=== PATIENT | male | born 1980 | race Caucasian/White ===

== ENCOUNTER 2021-08-16 10:11 | Emergency (ER) | payer BC, SELFPAY ==
--- NOTE | 2021-08-16 10:48 | XR_ITS ---
FINAL REPORT CLINICAL HISTORY: PAIN FINDINGS: Two views of the chest were obtained. The heart size and pulmonary vascularity are within normal limits. The mediastinum is normal. There is mild left lung base atelectasis or scarring. There is no pneumothorax. The bony thorax is intact. IMPRESSION: Mild left base atelectasis or scarring. Reviewed, Interpreted and Dictated by Emile Boyer III, MD Transcribed by Tad Fuller Authenticated by Emile Boyer III, MD on 08/16/2021 11:30:54 AM [facility]
[2021-08-16 11:00] VITALS: BP 133/90; PULSE 86; RESP 19; TEMP 36.8; O2SAT 99; BMI 36.1
--- NOTE | 2021-08-16 11:32 | HMH.EDUTC ---
[facility] – [place] Disposition Clinical Impression: Pleurisy Disposition: Home, Self-Care Condition on Discharge: Good Instructions: Pleurisy, DI for Pleurisy Additional Instructions: Drink plenty of fluids. Take ibuprofen for pain or fever. Take the medications as directed. Follow up with your regular doctor and take the chest x-ray report or a disk with the actual x-ray image on it (you can get this from medical records). GO TO THE ER FOR ANY WORSENING SYMPTOMS Don't start the oral steroids until tomorrow, since you had the shot here today. Prescriptions: methylPREDNISolone [Medrol] 4 mg PO DIRECTED 6 Days #21 packet Transmission Status: Received by [id number] Azithromycin [Z-Marcus 250mg Tab*] 250 mg PO UD DOSE PK #6 tab Transmission Status: Received by [id number] Referrals: Provider,Referral, MD [Primary Care Provider] - Time of Disposition: 12:18 Medical Decision Making - Medical Records Medical records reviewed: No: I reviewed the patient's medical records. - Bony Inquiry Pt receiving controlled substance: No Vital Signs: 08/16/21 11:00 08/16/21 12:14 Temperature 98.2 F 98.2 F Temperature Source Oral Pulse Rate 86 Pulse Rate [Right Brachial] 86 Respiratory Rate 19 19 Blood Pressure 133/90 Blood Pressure [Right Arm] 133/90 Blood Pressure Mean [Right Arm] 104 Blood Pressure Source [Right Arm] Automatic Cuff Blood Pressure Position [Right Arm] Sitting 02 Sat by Pulse Oximetry 99 Oxygen Delivery Method Room Air Orders (Tests/Meds): ED MEDICATIONS Discontinued Medications Generic Name Dose Route Start Last Admin Trade Name Meleq PRN Reason Stop Dose Admin Dexamethasone Sodium Phosphate 8 mg 08/16/21 12:05 08/16/21 12:10 Dexamethasone 4mg/Ml 1ml Vial IM 08/16/21 12:06 8 mg ONCE ONE Administration - Radiology Data #1 Image(s): Chest Image Reviewed: Yes I reviewed the patient's radiology image, Yes I have reviewed radiologist's interpretation Preliminary Findings: No Infiltrates Seen FINAL REPORT CLINICAL HISTORY: PAIN FINDINGS: Two views of the chest were obtained. The heart size and pulmonary vascularity are within normal limits. The mediastinum is normal. There is mild left lung base atelectasis or scarring. There is no pneumothorax. The bony thorax is intact. IMPRESSION: Mild left base atelectasis or scarring. Reviewed, Interpreted and Dictated by Emile Boyer III, MD Transcribed by Tad Fuller Authenticated by Emile Boyer III, MD on 08/16/2021 11:30:[address] [facility] HPI - General Stated complaint: pain back thru chest when breathes Time Seen by Provider: 08/16/21 11:32 Mode of Arrival: Ambulatory Source of Information: Patient Limitations: No Limitations Description of Symptoms (Recalled from Triage Doc. by RN): PATIENT C/O BACK PAIN AND PAIN WHEN TAKING A DEEP BREATH SINCE YESTERDAY HEENT Symptoms (Recalled from RN notes): No Resp Symptoms (Recalled from RN notes): Yes Skin Symptoms (Recalled from RN notes): No MS Symptoms (Recalled from RN notes): Yes Functional Status (Recalled from RN notes): WNL - History of Present Illness Provider Complaint: He states that since yesterday, he has had pain in his left lower back and left lower chest with deep breathing. He denies a significant cough or congestion, but the few times he has coughed also caused his pain. He denies any fever, chills, shortness of breath, significant cough, hemoptysis, or any other complaints. He denies any personal history of dvt & blood clots of any kind. He is adopted and does not know his family medical history. He denies any leg pain or swelling other than he has had his normal gout pain of his right knee that occurs occasionally. - Related Data Home Medications Medication Instructions Recorded Confirmed predniSONE [Prednisone 5mg 5 mg PO BID 08/16/21 08/16/21 Tab] Previous Rx's [facility]
[2021-08-16 12:14] VITALS: BP 133/90; PULSE 86; RESP 19; TEMP 36.8; O2SAT 99
== END 2021-08-16 12:24 | disposition home or self-care (01) ==
PROVIDERS: Emergency Provider Nurse Practitioner Family
DX: R09.1 Pleurisy (principal); M54.50 Low back pain, unspecified
CPT/HCPCS: 71046; 96372; 99213; G0463